=== PATIENT | female | born 1940 | race Caucasian/White ===

== ENCOUNTER 2016-05-28 08:14 | Day surgery (SDC) | payer MEDICARE, OTHER ==
[~2016-05-28] VITALS: Ht 157.5 cm; Wt 72.6 kg
[2016-05-28] MEDS ORDERED: LIDOCAINE 2% 100 MG/5 ML UJET TP ONE (09:15)
[2016-05-28] MEDS ORDERED: MIDAZOLAM 2 MG/2 ML VIAL ONE (09:46)
[2016-05-28] MEDS ORDERED: fentaNYL 0.05 MG/ML VIAL ONE (09:46)
[2016-05-28] MEDS ORDERED: fentaNYL 0.05 MG/ML VIAL IVP ONE (18:05)
== END 2016-05-28 10:30 | disposition home or self-care (01) ==
LOC: MMU 08:14 → MDS 08:14
PROVIDERS: ATTEND Internal Medicine Gastroenterology
DX: Z12.11 Encounter for screening for malignant neoplasm of colon (principal); K57.30 Diverticulosis of large intestine without perforation or abscess without bleeding; Z87.19 Personal history of other diseases of the digestive system; F32.9 Major depressive disorder, single episode, unspecified
CPT/HCPCS: 45378; J3010